=== PATIENT | male | born 1975 | race Hispanic/Latino ===

== ENCOUNTER 2019-11-17 22:49 | Emergency (ER) | payer OTHER ==
[2019-11-18] MEDS ORDERED: KETOROLAC 30 MG/1 ML INJ IV ONE (01:55)
[2019-11-18] MEDS ORDERED: SODIUM CHLORIDE 0.9% 1000 ML 1,000 ML IV ONE (01:55)
--- NOTE | 2019-11-18 02:00 | Emergency Department Report ---
ED Abdominal Pain HPI - General Chief Complaint: Back Pain/Injury Stated Complaint: BACK PAIN LT SIDE PAIN Time Seen by Provider: 11/18/19 01:53 Source: patient Mode of arrival: Ambulatory Limitations: No Limitations - History of Present Illness Initial Comments: 44 yo M present sto ED with 2 week history of left flank pain. States pain begins in left mid back and radiates down to LLQ. States pain is worse w/ position. Denies radiation of pain into the lower extremity or groin. Pain is intermittent, feels like cramping. Denies fever, cough, SOB, N/V/D, dysuria, hematuria, urinary frequency. MD Complaint: flank pain -: week(s) (2) Location: L flank Radiation: LLQ Severity: moderate Quality: cramping Consistency: intermittent Improves With: other (position) Worsens With: nothing, other (position) Associated Symptoms: denies: nausea, vomiting, diarrhea, fever, chills, dysuria, hematuria Treatments Prior to Arrival: NSAIDs - Related Data Previous Rx's Medication Instructions Recorded Last Taken Type Ibuprofen [Motrin] 800 mg PO Q8H PRN #30 tablet 04/14/14 Unknown Rx Oxycodone HCl/Acetaminophen 1 each PO Q6HR PRN #20 tablet 04/14/14 Unknown Rx [Percocet 10-325 mg] Naproxen [Naprosyn] 500 mg PO BID #20 tablet 11/18/19 Unknown Rx methOCARBAMOL [Robaxin TAB] 500 mg PO Q8HR PRN #20 tablet 11/18/19 Unknown Rx Allergies Allergy/AdvReac Type Severity Reaction Status Date / Time acetaminophen [From [place]] Allergy Nausea Verified 04/14/14 20:03 hydrocodone bitartrate Allergy Nausea Verified 04/14/14 20:03 [From [place]] ED Review of Systems ROS: Stated complaint: BACK PAIN LT SIDE PAIN Other details as noted in HPI Comment: All other systems reviewed and negative Constitutional: denies: chills, fever Respiratory: denies: cough, shortness of breath Gastrointestinal: abdominal pain. denies: nausea, vomiting, diarrhea Genitourinary: denies: dysuria, frequency, hematuria, testicular pain Musculoskeletal: back pain ED Past Medical Hx - Past Medical History Previous Medical History?: No - Surgical History Past Surgical History?: No - Social History Smoking Status: Current Every Day Smoker Substance Use Type: None - Medications Home Medications: Home Medications Medication Instructions Recorded Confirmed Last Taken Type Ibuprofen [Motrin] 800 mg PO Q8H PRN #30 tablet 04/14/14 Unknown Rx Oxycodone HCl/Acetaminophen 1 each PO Q6HR PRN #20 tablet 04/14/14 Unknown Rx [Percocet 10-325 mg] Naproxen [Naprosyn] 500 mg PO BID #20 tablet 11/18/19 Unknown Rx methOCARBAMOL [Robaxin TAB] 500 mg PO Q8HR PRN #20 tablet 11/18/19 Unknown Rx ED Physical Exam - General Limitations: No Limitations General appearance: alert, in no apparent distress - Head Head exam: Present: atraumatic, normocephalic - Eye Eye exam: Present: normal appearance, EOMI - ENT ENT exam: Present: mucous membranes moist - Neck Neck exam: Present: normal inspection - Respiratory Respiratory exam: Present: normal lung sounds bilaterally. Absent: respiratory distress - Cardiovascular Cardiovascular Exam: Present: regular rate, normal rhythm - GI/Abdominal GI/Abdominal exam: Present: soft, tenderness (mild LLQ tenderness). Absent: distended - Extremities Exam Extremities exam: Present: normal inspection - Back Exam Back exam: Present: CVA tenderness (L) - Neurological Exam Neurological exam: Present: alert, oriented X3 - Psychiatric Psychiatric exam: Present: normal affect, normal mood - Skin Skin exam: Present: warm, dry, intact, normal color ED Course Vital Signs 11/17/19 11/18/19 11/18/19 22:56 03:56 04:01 Temperature 97.7 F 97 F L 98.4 F Pulse Rate 85 84 76 Respiratory 14 16 16 Rate Blood Pressure 152/88 116/74 Blood Pressure 140/82 [Right] O2 Sat by Pulse 95 97 95 Oximetry ED Medical Decision Making - Lab Data Result diagrams: 11/18/19 01:59 11/18/19 01:59 - Radiology Data Radiology results: report reviewed, image reviewed - Medical Decision Making 44 yo M w/ left flank pain, worse with position. Possible muscle strain. 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 CXR negative. Urine does not show evidence of hematuria or infection. Remainder or labs unremarkable. CT Abd Pelvis neg for anything acute. WIll d/c at this time. Vitals normal. Prescriptions given. Outpt f/u advised, return precautions given. - Differential Diagnosis pneumonia, pyelonephritis, kidney stone, diverticulitis, muscle strain Critical care attestation.: If time is entered above; I have spent that time in minutes in the direct care of this critically ill patient, excluding procedure time. ED Disposition Clinical Impression: Flank pain Disposition: TO HOME OR SELFCARE Is pt being admited?: No Condition: Stable Instructions: Flank Pain (ED) Prescriptions: Naproxen [Naprosyn] 500 mg PO BID #20 tablet methOCARBAMOL [Robaxin TAB] 500 mg PO Q8HR PRN #20 tablet PRN Reason: Muscle Spasm Referrals: [facility] [Provider Group] - 3-5 Days [facility], [Primary Care Provider] - 3-5 Days Forms: Work/School Release Form Time of Disposition: 03:23
[2019-11-18 02:21] LABS: Basophils % (Auto) 0.5 % (0.0-1.8); Eosinophils # (Auto) 0.3 K/mm3 (0.0-0.4); Eosinophils % (Auto) 4.1 % (0.0-4.3); Hematocrit 38.5 % (35.5-45.6); Hemoglobin 13.1 gm/dl (11.8-15.2); Lymphocytes # (Auto) 1.6 K/mm3 (1.2-5.4); Lymphocytes % (Auto) 20.7 % (13.4-35.0); Mean Corpuscular HGB Conc 34 % (32-34); Mean Corpuscular Volume 94 fl (84-94); Monocytes # (Auto) 1.2 K/mm3 (0.0-0.8); Monocytes % (Auto) 14.7 % (0.0-7.3); Platelet Count 256 K/mm3 (140-440); Red Blood Count 4.08 M/mm3 (3.65-5.03)
--- NOTE | 2019-11-18 02:26 | XRay Report ---
CHEST 2 VIEWS INDICATION: left posterior chest pain. COMPARISON: None FINDINGS: Support devices: None. Heart: Within normal limits. Lungs/pleura: No acute air space or interstitial disease. No pneumothorax. Additional findings: None. IMPRESSION: 1. No acute findings. Signer Name: Girish Liang MD Signed: 11/18/2019 2:22 AM Workstation Name: [email or web address]
[2019-11-18 02:33] LABS: Alanine Aminotransferase 18 units/L (7-56); BUN/Creatinine Ratio 31; Blood Urea Nitrogen 25 mg/dL (9-20); Hemolysis Index 10
[2019-11-18 02:53] LABS: Bilirubin,Direct < 0.2 mg/dL (0-0.2)
--- NOTE | 2019-11-18 03:08 | Cat Scan Report ---
CT ABDOMEN AND PELVIS WITHOUT CONTRAST HISTORY: L flank pain. COMPARISON: None. TECHNIQUE: CT images of the abdomen and pelvis were obtained without administration of intravenous co ntrast. All CT scans at this location are performed using CT dose reduction for ALARA by means of au tomated exposure control. FINDINGS: Lungs/bones: Lung bases are clear. There is no acute osseous abnormality. Degenerative changes are p resent in the spine and pelvis. Abdomen/pelvis: The liver, gallbladder, spleen, pancreas, adrenals, kidneys, and proximal GI tract a ppear unremarkable. Urinary bladder and prostate are normal with no pelvic free fluid. No acute colonic abnormality ident ified. The terminal ileum and appendix appear normal. IMPRESSION: 1. Unremarkable examination. Signer Name: Girish Liang MD Signed: 11/18/2019 3:04 AM Workstation Name: [id number]
[2019-11-18 03:18] LABS: Bilirubin,Urine NEG (Negative); Blood,Urine SM (Negative); Color,Urine Yellow (Yellow); Protein,Urine <15 mg/dL mg/dL (Negative); Urobilinogen,Urine < 2.0 mg/dL (<2.0)
[2019-11-18 04:05] VITALS: BP 116/74
== END 2019-11-18 04:05 | disposition home or self-care (01) ==
LOC: ED 22:49
DX: R10.9 Unspecified abdominal pain (principal); F17.200 Nicotine dependence, unspecified, uncomplicated; Z88.6 Allergy status to analgesic agent; Z79.899 Other long term (current) drug therapy
CPT/HCPCS: 36415; 71046; 74176; 80048; 80076; 81001; 83690; 85025

== ENCOUNTER 2020-06-01 22:28 | Emergency (ER) | payer OTHER ==
[2020-06-02 00:19] VITALS: BP 112/90
--- NOTE | 2020-06-02 00:50 | XRay Report ---
Right foot-3 views INDICATION: right foot pain. COMPARISON: None. IMPRESSION: Mild generalized soft tissue swelling about the forefoot with no acute fracture or malal ignment. No significant DJD. Signer Name: Girish Liang MD Signed: 06/02/2020 12:45 AM Workstation Name: [id number]
[2020-06-02] MEDS ORDERED: KETOROLAC 60 MG/2 ML INJ IM STA (03:25)
--- NOTE | 2020-06-02 03:32 | Emergency Department Report ---
ED Lower Extremity HPI - General Chief Complaint: Extremity Injury, Lower Stated Complaint: RT FOOT BROKE Time Seen by Provider: 06/02/20 03:25 Source: patient Mode of arrival: Ambulatory Limitations: No Limitations - History of Present Illness MD Complaint: foot injury -: Gradual Injury: Foot: Right Type of Injury: unknown Place: home Severity: mild, moderate Improves With: nothing Worsens With: weight bearing, movement (ssss), palpation Context: walking (makes it worsen signficantly in the begining. ), other Associated Symptoms: swelling, unable to bear weight. denies: numbness, tingling - Related Data Previous Rx's Medication Instructions Recorded Last Taken Type Ibuprofen [Motrin] 800 mg PO Q8H PRN #30 tablet 04/14/14 Unknown Rx Oxycodone HCl/Acetaminophen 1 each PO Q6HR PRN #20 tablet 04/14/14 Unknown Rx [Percocet 10-325 mg] Naproxen [Naprosyn] 500 mg PO BID #20 tablet 11/18/19 Unknown Rx methOCARBAMOL [Robaxin TAB] 500 mg PO Q8HR PRN #20 tablet 11/18/19 Unknown Rx predniSONE [Deltasone] 50 mg PO QDAY #7 tab 06/02/20 Unknown Rx Allergies Allergy/AdvReac Type Severity Reaction Status Date / Time acetaminophen [From [place]] Allergy Nausea Verified 04/14/14 20:03 hydrocodone bitartrate Allergy Nausea Verified 04/14/14 20:03 [From [place]] ED Review of Systems ROS: Stated complaint: RT FOOT BROKE Other details as noted in HPI Comment: All other systems reviewed and negative ED Past Medical Hx - Past Medical History Previous Medical History?: Yes Additional medical history: Obesity - Surgical History Past Surgical History?: No - Social History Smoking Status: Current Every Day Smoker Substance Use Type: None - Medications Home Medications: Home Medications Medication Instructions Recorded Confirmed Last Taken Type Ibuprofen [Motrin] 800 mg PO Q8H PRN #30 tablet 04/14/14 Unknown Rx Oxycodone HCl/Acetaminophen 1 each PO Q6HR PRN #20 tablet 04/14/14 Unknown Rx [Percocet 10-325 mg] Naproxen [Naprosyn] 500 mg PO BID #20 tablet 11/18/19 Unknown Rx methOCARBAMOL [Robaxin TAB] 500 mg PO Q8HR PRN #20 tablet 11/18/19 Unknown Rx predniSONE [Deltasone] 50 mg PO QDAY #7 tab 06/02/20 Unknown Rx ED Physical Exam - General Limitations: No Limitations General appearance: alert, in no apparent distress - Head Head exam: Present: atraumatic, normocephalic - Eye Eye exam: Present: normal appearance - ENT ENT exam: Present: mucous membranes moist - Neck Neck exam: Present: normal inspection - Respiratory Respiratory exam: Present: normal lung sounds bilaterally. Absent: respiratory distress - Cardiovascular Cardiovascular Exam: Present: regular rate, normal rhythm. Absent: systolic murmur, diastolic murmur, rubs, gallop - GI/Abdominal GI/Abdominal exam: Present: soft, normal bowel sounds - Rectal Rectal exam: Present: deferred - Extremities Exam Extremities exam: Present: normal inspection, tenderness - Expanded Lower Extremity Exam Right Foot/Toe exam: Present: tenderness (to instep of foot and worsens wtih palpation and dorsiflexion). Absent: amputation, puncture wound Neuro vascular tendon exam: Present: no vascular compromise - Back Exam Back exam: Present: normal inspection - Neurological Exam Neurological exam: Present: alert, oriented X3 - Psychiatric Psychiatric exam: Present: normal affect, normal mood - Skin Skin exam: Present: warm, dry, intact, normal color. Absent: rash ED Course Vital Signs 06/02/20 00:18 Temperature 98.3 F Pulse Rate 90 Respiratory 18 Rate Blood Pressure 112/90 O2 Sat by Pulse 94 Oximetry ED Lower Extremity MDM - Radiology Data Radiology results: report reviewed Referring Physician:ED REYPatient Name:OSIRIS LEWISPatient ID:[id number] of :[id number]:MaleAccession:[id number] Date:[id number] Status:Finalized Findings [facility] [address] [place] [address] XRay Report Signed Patient: OSIRIS LEWIS MR#: [id number] : 1975 Acct:[id number] Age/Sex: 45 / M ADM Date: 06/01/20 Loc: ED Attending Dr: Ordering Physician: APARNA LE MD Date of Service: 06/02/20 Procedure(s): XR foot 3+V RT Accession Number(s): [id number] cc: ED MD REY Fluoro Time In Minutes: Right foot-3 views INDICATION: right foot pain. COMPARISON: None. IMPRESSION: Mild generalized soft tissue swelling about the forefoot with no acute fracture or malalignment. No significant DJD. Signer Name: Girish Liang MD Signed: 06/02/2020 12:45 AM Workstation Name: [id number] Transcribed By: FRANCIS Dictated By: Girish Liang MD Electronically Authenticated By: Girish Liang MD Signed Date/Time: 06/02/2044 DD/ TD/TT: Critical care attestation.: If time is entered above; I have spent that time in minutes in the direct care of this critically ill patient, excluding procedure time. ED Disposition Clinical Impression: Plantar fasciitis of right foot Disposition: DC-01 TO HOME OR SELFCARE Is pt being admited?: No Does the pt Need Aspirin: No Condition: Stable Instructions: Plantar Fasciitis, Plantar Fasciitis [facility]hab[facility] Prescriptions: predniSONE [Deltasone] 50 mg PO QDAY #7 tab Referrals: PRIMARY CAREMD [Primary Care Provider] - 3-5 Days ARLENE GOETZ MD [Staff Physician] - 3-5 Days SAM FAROOQ DPM [Referring] - 3-5 Days ZAIRA THORNTON DPM [Staff Physician] - 3-5 Days RADHA HIGGINBOTHAM MD [Staff Physician] - 3-5 Days Forms: Work/School Release Form(ED)
== END 2020-06-02 04:00 | disposition home or self-care (01) ==
LOC: ED 22:28
DX: M72.2 Plantar fascial fibromatosis (principal); F17.200 Nicotine dependence, unspecified, uncomplicated; Z79.899 Other long term (current) drug therapy; Z88.6 Allergy status to analgesic agent
CPT/HCPCS: 73630; 96372; 99284; J1885